=== PATIENT | female | born 2000 | race Caucasian/White ===

== ENCOUNTER 2024-04-08 07:57 | Emergency (ER) | payer OTHER, SELFPAY ==
[2024-04-08] VITALS (7 sets, daily range): BP systolic 89–110; BP diastolic 38–86; BMI 32.1
[2024-04-08] MEDS: NSS 500 IV (08:22)
--- NOTE | 2024-04-08 08:23 | ED.GENMED ---
History of Present Illness
General
Chief Complaint: Abdominal Symptoms
Source: patient
Exam Limitations: none
Time Seen by Provider: 04/08/24 08:07
Nursing documentation reviewed up to this point in time: agreed with
History of Present Illness
History of Present Illness:
23-year-old female presents emergency department due to bilateral lower abdominal discomfort, nausea vomiting and diarrhea since midnight.
Past History
Past History
ED Past Medical History: Psychiatric (Anxiety, depression) and Other (Autistic spectrum)
ED Past Surgical History: None
Social History
Tobacco: Non-smoker
Alcohol: None
Drug: None
Personal: Single
Living: with family
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
Family History
Family History: Other (Noncontributory)
Review of Systems
Review of Systems
Allergies reviewed?: Yes
All Other Systems: Not applicable
Constitutional: Reports no symptoms
EENT: Reports no symptoms
Respiratory: Reports no symptoms
Cardiac: Reports no symptoms
ABD/GI: Reports abdominal pain, vomiting and diarrhea
: Reports no symptoms
Musculoskeletal: Reports no symptoms
Skin: Reports no symptoms
Neurological: Reports no symptoms
Endocrine: Reports no symptoms
Hematologic/Lymphatic: Reports no symptoms
Psychiatric: Reports no symptoms
Phy Exam
Physical Exam
Physical Exam:
Physical Exam
General: no apparent distress, not acutely ill
Neck: supple. no meningeal signs. normal posterior pharynx
Heart: s1/s2 tachycardia, no murmur. equal radial
pulses.
HEENT: Pupils equal round reactive to light, EOMI
Lungs: no acute respiratory distress. clear bilaterally
Abdomen: normal bowel sounds. not tender. no CVAT
Neuro: alert and oriented. no focal neurological deficits cranial nerves II through XII intact
Skin: no rash
Psychiatric: well kept. interactive and cooperative
Extremities: no edema. no calf tenderness. negative homans. good distal pulses
Course
Orders/Labs/Results
Orders:
Orders
04/08/24 08:18
Basic Metabolic Panel Urgent
Complete Blood Count/With Diff Urgent
Lipase Urgent
Urinalysis Reflex To Culture Urgent
Date Specimen was Collected: 04/08/24
Time Specimen was Collected: 08:18
04/08/24 08:20
IV Insert/Care/Rem.- Treatment PRN
0.9% Sodium Chloride 500 ml [Nss] 500 ml IV BOLUS
04/08/24 08:21
Electrocardiogram (*1) Urgent
Reason for Study: QTc Monitoring
EKG- Treatment ONCE
04/08/24 08:32
Ondansetron Injectable [Zofran] 4 mg IV NOW STA
04/08/24 08:33
Ondansetron Injectable [Zofran] 4 mg .ROUTE .STK-MED ONE
04/08/24 08:39
CT Abd/pelvis W Iv Cont Urgent
Comment:
Reason For Exam: bilateral R>L abdominal pain, n/v/d
04/08/24 08:44
Add On- LAB Urgent
Tests Added?: serum hcg quant
04/08/24 09:16
Test Result ONCE
04/08/24 09:18
Potassium Urgent
, Serum Qualitative Screen [HCG, Serum Qualitative Screen] Urgent
04/08/24 12:56
Ondansetron Injectable [Zofran] 4 mg IV NOW STA
04/08/24 12:57
Ondansetron Injectable [Zofran] 4 mg .ROUTE .STK-MED ONE
Abnormal Lab Results
04/08/24 04/08/24
08:18 09:18
WBC 19.6 H 10^3/uL
(4.8-10.8)
MPV 10.7 H fL
(7.4-10.4)
Abs Immat Gran (auto) 0.1 H 10^3/uL
(0-0.05)
Absolute Neuts (auto) 18.0 H 10^3/uL
(1.4-6.5)
Absolute Lymphs (auto) 0.5 L 10^3/uL
(1.2-3.4)
Absolute Monos (auto) 0.9 H 10^3/uL
(0.1-0.6)
Neutrophils % 91.6 H %
(42.2-75.2)
Lymphocytes % 2.6 L %
(20.5-51.1)
Potassium 5.3 H mmol/L
(3.5-5.1)
Carbon Dioxide 19 L mmol/L
(22-30)
BUN 24 H mg/dl
(7-17)
Creatinine 1.1 H mg/dL
(0.6-1.0)
Glucose 163 H mg/dl
(70-99)
Calcium 10.3 H mg/dl
(8.4-10.2)
Urine Ketones 2+ A
(Negative)
04/08/24 08:18
04/08/24 09:18
Vital Signs
Initial and Last Documented VS:
Initial Vital Signs
Temp Pulse Resp BP Pulse Ox
97.6 F 106 16 110/73 100
04/08/24 07:59 04/08/24 07:59 04/08/24 07:59 04/08/24 07:59 04/08/24 07:59
Last Documented Vital Signs
Temp Pulse Resp BP Pulse Ox
97.6 F 102 18 102/74 98
04/08/24 07:59 04/08/24 12:59 04/08/24 12:59 04/08/24 13:00 04/08/24 13:31
MDM/Problems Addressed
Differential Diagnosis Includes:
Nausea vomiting diarrhea, appendicitis, diverticulitis, colitis
MDM/Problems Addressed:
23-year-old female with nausea vomiting diarrhea, likely viral cause. No acute findings on CT abdomen pelvis. Improved after IV fluids and Zofran prescribed.
Chronic conditions affecting care: Other (Autistic spectrum)
*Radiology
Radiology exam reviewed: radiology read reviewed (CT abdomen pelvis shows ovarian cyst, likely physiologic)
*Pulse Oximetry
Patient hypoxic: no
*EKG
Interpreted by ED Provider?: Yes
EKG Intrepretation Date: 04/08/24
EKG Intrepretation Time: 08:30
Interpretation: normal
Comparison EKG: no comparison EKG present
Heart Rate: 92
Rate: normal
Rhythm: sinus
Story: normal axis
Interval: normal interval
QRS Pattern: normal QRS
Ischemia: no ischemia
*Income Tax Auditor Interpretation
Rate: normal
Interpretation: normal
Heart Rate: 100
Rhythm: sinus
*Critical Care Note
Total Time (30-74mins, 75-104mins- exclusive of procedures): Not Applicable
Patient Management
Social determinants of health affecting care: Living situation
Escalation/DeEscalation of care consider admission/obs:
Admit not indicated
ED Attending Note
-
Portions of this chart may have been created with voice recognition software.� Occasional wrong word or��sound alike� substitutions may have occurred due to the inherent limitations of voice recognition software.
Discharge Plan
Departure
Patient Disposition: Home (Routine Discharge)
Date of Disposition: 04/08/24
Time of Disposition: 14:31
Patient with high blood pressure during this ER visit?: No
Condition: Good
Discharge Problem:
Nausea vomiting and diarrhea
Instructions: Diarrhea in teens and adults, Nausea and Vomiting, Adult (DC), Abdominal Pain, BLOOD PRESSURE
Prescriptions:
New
ondansetron 4 mg tablet,disintegrating
4 mg PO Q8H PRN (Reason: nausea and vomiting) 4 Days Qty: 10 0RF
No Action
fluoxetine [Prozac] 40 MG capsule
40 mg PO DAILY
bupropion HCl 300 MG tablet extended release 24 hr
300 mg PO DAILY
Referrals:
Kristy Garcia MD [Family Provider] - Call in 1-3 days for appt
Interventions
Interventions:
*Risk Screen - Suicide Last Done: 04/08/24 07:59
*General Assessment Last Done: 04/08/24 07:59
*Neglect/Abuse Screening Last Done: 04/08/24 07:59
ED- Fall Risk Assessment Last Done: 04/08/24 08:08
*ED COVID-19 Vaccine History Last Done: 04/08/24 08:08
NL-Cccoan-Yqdhwqokno Assessment Last Done: 04/08/24 08:08
Discharge Date and Time
Print Language: GAMBIAN
[2024-04-08 08:34] LABS: % Basophils 0.3 % (0-2); % Eosinophils 0.3 % (0-6); % Immature Granulocytes 0.5 % (0-0.5); % Lymphocytes 2.6 % (20.5-51.1); % Monocytes 4.7 % (1.7-9.3); % Neutrophils 91.6 % (42.2-75.2); Absolute Basophils 0.1 10^3/uL (0-0.2); Absolute Eosinophils 0.1 10^3/uL (0-0.7); Absolute Immature Granulocytes 0.1 10^3/uL (0-0.05); Absolute Lymphocytes 0.5 10^3/uL (1.2-3.4); Absolute Monocytes 0.9 10^3/uL (0.1-0.6); Hematocrit 45.2 % (37.0-47.0); Mean Corp Hgb Conc. 33.2 g/dL (33.0-37.0); Mean Corpuscular Hgb 28.1 pg (27.0-31.0); Mean Corpuscular Volume 84.8 fL (81.0-99.0); Mean Platelet Volume 10.7 fL (7.4-10.4); Nucleated Red Blood Cells % 0 %; Platelet Count 326 10^3/uL (130-400); Red Blood Cell Count 5.33 10^6/uL (4.20-5.40); Red Cell Dist. Width 12.6 % (11.5-14.5); White Blood Cell Count 19.6 10^3/uL (4.8-10.8)
[2024-04-08] MEDS: ZOFRAN 4 MG IV ×2 (08:34→12:59)
[2024-04-08 08:52] LABS: Blood Urea Nitrogen 24 mg/dl (7-17); Calcium 10.3 mg/dl (8.4-10.2); Carbon Dioxide 19 mmol/L (22-30); Chloride 102 mmol/L (98-107); Estimated Creatinine Clearance 69 ml/min; Glucose 163 mg/dl (70-99); Lipase 83 U/L (23-300); Sodium 138 mmol/L (135-145); eGFR > 60.00
[2024-04-08 09:49] LABS: Potassium 5.3 mmol/L (3.5-5.1)
[2024-04-08 09:50] LABS: HCG, Serum Qualitative Screen Negative
[2024-04-08 12:29] LABS: Urine Albumin Negative (Neg - Trace); Urine Bilirubin Negative (Negative); Urine Character Clear (Clear); Urine Color Yellow; Urine Glucose Negative (Negative); Urine Ketone 2+ (Negative); Urine Leukocyte Negative (Negative); Urine Nitrite Negative (Negative); Urine Occult Blood Negative (Negative); Urine Specific Gravity 1.015 (<1.030); Urine Urobilinogen Negative (Neg - 1+)
== END 2024-04-08 15:09 | disposition home or self-care (01) ==
LOC: EMR 07:57
PROVIDERS: EMERGENCY PHYSICIAN Emergency Medicine; FAMILY PHYSICIAN Emergency Medicine
DX: R11.2 Nausea with vomiting, unspecified (principal); R19.7 Diarrhea, unspecified; F41.8 Other specified anxiety disorders; F84.0 Autistic disorder
CPT/HCPCS: 99284; 96374; 96376; 96361; 74177; 80048; 81003; 83690; 84132; 84703; 85025; 93005; Q9967